=== PATIENT | male | born 1990 | race African-American/Black ===

== ENCOUNTER 2016-06-05 05:58 | Emergency (ER) | payer MEDICAID ==
[~2016-06-05] VITALS: Ht 175.3 cm; Wt 86.0 kg
[~2016-06-05 05:58] MED LIST: DIVAL250 PO; HALO100A IM; QUET50TA11 PO
[2016-06-05 07:07] LABS: BASOPHILS % 0.9 % (0.0-2.0); EOSINOPHILS % 1.3 % (0.0-5.0); HEMATOCRIT. 40.5 % (42.0-52.0); HEMOGLOBIN. 13.3 g/dL (14.0-18.0); LYMPHOCYTES % 14.9 % (20.0-50.0); MEAN CORPUSCULAR HEMOGLOBIN 30.6 pg (28.0-32.0); MEAN CORPUSCULAR HGB CONC 32.8 g/dL (31.0-37.0); MEAN CORPUSCULAR VOLUME 93.3 fL (80.0-94.0); MEAN PLATELET VOLUME 7.7 fl (7.4-10.4); MONOCYTES % 7.5 % (2.0-8.0); NEUTROPHILS % 75.4 % (40.0-76.0); PLATELET 254 x1000/uL (130-400); RED BLOOD CELL COUNT 4.34 mill/uL (4.7-6.1); RED CELL DISTRIBUTION WIDTH 13.9 % (11.6-14.6); WHITE BLOOD COUNT 8.8 x1000/uL (4.5-11.0)
[2016-06-05 07:13] LABS: CHLORIDE 106 mEq/L (98-107)
[2016-06-05 07:15] LABS: INDEX HEMOLYSI 1 (1-3); INDEX ICTERIC 1 (1-4); INDEX LIPEMIC 1 (1-3)
[2016-06-05 07:21] LABS: ACETAMINOPHEN < 2 ug/mL (10-30); ALANINE AMINOTRANSFERASE 43 IU/L (13-61); ALBUMIN 3.8 g/dL (3.4-5.0); ANION GAP 13; CALCIUM 8.9 mg/dL (8.5-10.1); CARBON DIOXIDE 25 mEq/L (21-32); ETHANOL BLOOD < 10 mg/dL; UREA NITROGEN BLOOD 6 mg/dL (7-21); eGFR > 60 mL/min (>60)
[2016-06-05] MEDS ORDERED: LORAZEPAM 2MG/ML CPJ IM PRN (08:00)
[2016-06-05] MEDS ORDERED: LORAZEPAM 2MG/ML CPJ IM ONE (08:00)
[2016-06-05 09:43] LABS: CLARITY URINE CLEAR (CLEAR); COLOR URINE YELLOW (YELLOW); GLUCOSE URINE NEGATIVE (NEGATIVE); KETONES URINE 2+ (NEGATIVE); LEUKOCYTE ESTERASE URINE NEGATIVE (NEGATIVE); NITRITE URINE NEGATIVE (NEGATIVE); OCCULT BLOOD URINE NEGATIVE (NEGATIVE); PH URINE 6.5 (4.5-8.0); PROTEIN URINE NEGATIVE (NEGATIVE)
[2016-06-05 09:54] LABS: *AMPHETAMINES SCREEN URINE NEGATIVE (NEGATIVE); *BARBITURATES SCREEN URINE NEGATIVE (NEGATIVE); *BENZODIAZEPINES SCREEN URINE NEGATIVE (NEGATIVE); *COCAINE SCREEN URINE NEGATIVE (NEGATIVE); CANNABINOID URINE SCREEN PRESUMTIVE POSITIVE (NEGATIVE); ECSTASY MDMA SCREEN URINE NEGATIVE (NEGATIVE); METHADONE URINE SCREEN NEGATIVE (NEGATIVE); OPIATES URINE SCREEN NEGATIVE (NEGATIVE); PHENCYCLIDINE URINE SCREEN NEGATIVE (NEGATIVE)
[2016-06-05] MEDS ORDERED: LORAZEPAM 1MG TABLET PO ONE (20:00)
[2016-06-05] MEDS ORDERED: OLANZAPINE 10 MG/VIAL IM ONE (22:00)
[2016-06-06] MEDS ORDERED: OLANZAPINE 10 MG/VIAL IM ONE (10:45)
[2016-06-06] MEDS ORDERED: LORAZEPAM 2MG/ML CPJ IM PRN ×2 (10:45)
[2016-06-06 19:20] VITALS: BP 127/88
== END 2016-06-06 19:55 | disposition home or self-care (01) ==
LOC: ER 05:58
DX: R44.0 Auditory hallucinations (principal); R45.851 Suicidal ideations; F31.9 Bipolar disorder, unspecified; Z79.899 Other long term (current) drug therapy
CPT/HCPCS: 36415; 80053; 80302; 80305; 80329; 81003; 85025; 96372; 99284; G0482; J2060; J3490; 80307